=== PATIENT | male | born 1935 | race Caucasian/White ===

== ENCOUNTER 2019-05-29 20:04 | Inpatient (IN) ==
[2019-05-29] MEDS ORDERED: IOPAMIDOL 100 ML BOTTLE IV ONE (20:05)
[2019-05-29] MEDS ORDERED: cefTRIAXone 1 GM in DEXTROSE 5% IN WATER 50 ML IV SCH (20:30)
[2019-05-29] MEDS ORDERED: MAGNESIUM SULFATE 2 GM/50 ML BAG IV ONE (20:30)
[2019-05-29] MEDS ORDERED: 0.9 % SODIUM CHLORIDE 500 ML IV ONE (20:30)
[2019-05-29] MEDS ORDERED: DEXAMETHASONE 10 MG/ML VIAL IV ONE (20:34)
[2019-05-29 21:07] LABS: Basophils # (Auto) 0.06 K/mcL (0.00-0.30); Basophils % (Auto) 0.4 % (0.0-2.0); Eosinophils # (Auto) 0.23 K/mcL (0.00-0.70); Eosinophils % (Auto) 1.4 % (0.0-7.0); Granulocytes % (Auto) 74.4 % (38.0-78.0); Hematocrit 44.2 % (40.1-51.0); Hemoglobin 14.6 g/dL (13.7-17.5); Lymphocytes # (Auto) 2.95 K/mcL (1.50-4.80); Lymphocytes % (Auto) 18.3 % (15.5-49.0); Mean Cell Volume 89.7 fL (80.0-100.0); Mean Platelet Volume 10.6 fL (7.4-10.4); Monocytes # (Auto) 0.88 K/mcL (0.10-0.90); Monocytes % (Auto) 5.5 % (1.0-12.0); Platelet Count 253 K/mcL (140-440); RBC 4.93 M/mcL (4.63-6.08); WBC 16.1 K/mcL (4.50-11.00)
[2019-05-29 21:16] LABS: POC Blood Urea Nitrogen 10 mg/dl (8-23); POC CO2 25 mmol/L (22-30); POC Calcium, Ionized 1.07 mmol/L (1.16-1.32); POC Chloride 101 mmol/L (96-108); POC Creatinine 0.8 mg/dl (0.7-1.2); POC Glucose, Random 176 mg/dL (70-105); POC Potassium 3.8 mmol/L (3.3-5.1); POC Sodium 137 mmol/L (133-145)
[2019-05-29 21:37] LABS: ALT/SGPT 12 U/l (0-40); AST/SGOT 22 U/l (0-37); Albumin 3.9 gm/dL (3.2-5.2); Albumin/Globulin Ratio 1.5 (1.0-2.3); Alkaline Phosphatase 143 U/L (39-117); Bilirubin,Total 0.3 mg/dL (0.0-1.0); Blood Urea Nitrogen 10 mg/dl (8-23); Calcium 8.6 mg/dl (8.6-10.4); Carbon Dioxide 24 mmol/L (22-30); Chloride 99 mmol/L (96-108); Globulin 2.6 gm/dL (2.2-3.7); Glomerular Filtration Rate 83; Glucose 178 mg/dL (70-105)
--- NOTE | 2019-05-29 21:52 | Emergency Department Note ---
SOB HPI - General Chief Complaint: Shortness of Breath/Dyspnea Stated Complaint: shortness of breath Time Seen by Provider: 05/29/19 20:30 Source: patient, family, EMS Mode of arrival: wheelchair Limitations: no limitations - History of Present Illness 83-year-old male with known COPD, was also on CPAP at night comes in via EMS for shortness of breath. Apparently the last 2 nights he has not been able to sleep lying down and has not been moving air well. EMS came out to his house and he was not able to breathe so he got to doses of breathing treatment before coming in. This did not alleviate his dyspnea so he was placed on a CPAP machine-this greatly helped. He has had a fever as well I was only able to get him to answer a few questions as he was on BiPAP here in the ER-he was struggling to breathe and required it. History is per his daughter, who lives across the street from him, and EMS - Related Data Home Medications Medication Instructions Recorded Confirmed acetaminophen 325 mg tablet 1,500 mg PO ONCE tab 10/31/15 02/01/18 carboxymethylcellulose sodium 1 % 1 drp OPHTHALMIC TID PRN ml 02/01/18 02/01/18 eye liquid gel drops Aspirin [[facility] Aspirin EC] 81 mg PO DAILY 05/29/19 05/29/19 Cod Liver Oil 1 each PO QAM 05/29/19 05/29/19 Naproxen (Pp) [Aleve 220Mg (Pp)] 220 mg PO PRN PRN 05/29/19 05/29/19 Previous Rx's Medication Instructions Recorded Self Titration CPAP machine #1 ea 01/26/17 blood sugar diagnostic, drum See Dose Instructions .ROUTE 09/23/17 .MEDSUPPLY #102 each 4 wheel walker #1 each 02/02/18 Wide shower Bench #1 ea 02/02/18 losartan 50 mg tablet 50 mg PO QDAY #30 tab 03/07/18 Allergies Allergy/AdvReac Type Severity Reaction Status Date / Time Amoxicillin [AMOXICILLIN] Allergy Unknown FACE AND Verified 02/01/18 17:46 THROAT SWELLING metoprolol [METOPROLOL] Allergy Unknown Dizziness Verified 02/01/18 17:46 morphine [MORPHINE] Allergy Unknown HALLUCINATI Verified 02/01/18 17:46 ONS oxybutynin Allergy Unknown Difficulty Verified 02/01/18 17:46 Swallowing silodosin [From Rapaflo] Allergy Unknown Headache Verified 02/01/18 17:46 tamsulosin Allergy Unknown Hives Verified 02/01/18 17:46 methylprednisolone AdvReac Unknown Agitation Verified 02/01/18 17:46 [METHYLPREDNISOLONE] Review of Systems Limitations: ROS unobtainable due to patients medical condition Past Medical History - Past Medical History Attestation: Yes: The following information was validated with the patient. [facility] Narrative: Family History (Last Reviewed 02/01/18 @ 17:46 by Alexandria Oliver, SARAH, CALLIE) Brother Malignant neoplasm of brain Cerebrovascular accident Sister Malignant neoplasm of breast Leukemia Medical History (Last Reviewed 02/01/18 @ 17:46 by Alexandria Oliver, SARAH, CALLIE) Meningioma (Chronic ~08/2017) Hydrocele (Chronic) Groin pain (Chronic) Swelling of scrotum (Chronic) Chronic back pain (Chronic) Vitreous degeneration (Chronic) Sleep apnea (Chronic) Pulmonary embolism (Chronic) Visual disturbance (Chronic) TATIANA (obstructive sleep apnea) (Chronic) Obesity (Chronic) Melanoma of skin (Resolved) Hypertension, essential (Chronic) Hyperlipidemia (Chronic) Fatigue (Chronic) HTN, white coat (Chronic) DMII (diabetes mellitus, type 2) (Chronic) Dermatochalasis (Chronic) DVT (deep venous thrombosis) (Resolved) Coronary atherosclerosis (Chronic) Conjunctivitis, allergic, chronic (Chronic) Chronic sinusitis (Chronic) COPD (chronic obstructive pulmonary disease) (Chronic) 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) BPH without obstruction/lower urinary tract symptoms (Resolved) Bronchitis, chronic (Resolved) Metabolic disorder (Resolved) Overactive bladder (Resolved) Prostate disorder (Resolved) Snoring (Resolved) CAD (coronary artery disease) (Inactive) Past Surgical History (Last Reviewed 02/01/18 @ 17:46 by Alexandria Oliver, SARAH, CALLIE) H/O arthroscopic knee surgery (Resolved) H/O colonoscopy (Resolved 09/27/07) H/O removal of cyst (Resolved) History of carpal tunnel release (Resolved) History of hip surgery (Resolved) S/P lumbar spinal fusion (Resolved) S/P tonsillectomy (Resolved) - Social History smoking status: Former smoker Physical Exam Obese male in some respiratory distress relieved on BiPAP. Now comfortable on BiPAP. He is able answer some questions but is difficult to hear over the noise of the machine. Normocephalic atraumatic. Conjunctive are clear sclerae white nonicteric. Heart is tachycardic. I am not able to hear a murmur. Lungs are clear to auscultation but I do hear some upper airway wheezing and rhonchi. Abdomen is soft nontender nondistended. He is got +1 pedal edema bilaterally to the knees. He is closing his eyes but he is easily arousable Limitations: no limitations Course Vital Signs Pulse Rate 123 H 05/29/19 20:05 Blood Pressure 204/112 05/29/19 20:05 Pulse Oximetry (%) 100 05/29/19 20:05 Pulse Rate 101 H 05/29/19 22:10 Respiratory Rate 22 05/29/19 22:10 Blood Pressure 174/83 05/29/19 22:10 Pulse Oximetry (%) 100 05/29/19 22:10 Shortness of Breath/Dyspnea - Lab Data Lab results reviewed: Yes I reviewed the patient's lab results. Result diagrams: 05/29/19 20:27 05/29/19 20:27 Lab Results 05/29/19 05/29/19 05/29/19 Range/Units 20:27 20:27 20:27 WBC 16.1 H (4.50-11.00) K/mcL RBC 4.93 (4.63-6.08) M/mcL Hgb 14.6 (13.7-17.5) g/dL Hct 44.2 (40.1-51.0) % POC Hct (41.0-55.0) % MCV 89.7 (80.0-100.0) fL MCH 29.6 (26.0-34.0) pg MCHC 33.0 (31.0-36.0) g/dL RDW 13.0 (11.5-14.5) % Plt Count 253 (140-440) K/mcL MPV 10.6 H (7.4-10.4) fL Gran % 74.4 (38.0-78.0) % Lymph % (Auto) 18.3 (15.5-49.0) % [place] % (Auto) 5.5 (1.0-12.0) % Eos % (Auto) 1.4 (0.0-7.0) % Baso % (Auto) 0.4 (0.0-2.0) % Gran # 11.96 H (1.80-8.00) K/mcL Lymph # (Auto) 2.95 (1.50-4.80) K/mcL [place] # (Auto) 0.88 (0.10-0.90) K/mcL Eos # (Auto) 0.23 (0.00-0.70) K/mcL Baso # (Auto) 0.06 (0.00-0.30) K/mcL VBG Lactic Acid (0.5-2.0) mmol/L POC Sodium (133-145) mmol/L Sodium 138 (133-145) mmol/L POC Potassium (3.3-5.1) mmol/L Potassium 4.4 (3.3-5.1) mmol/L POC Chloride (96-108) mmol/L Chloride 99 (96-108) mmol/L Carbon Dioxide 24 (22-30) mmol/L POC Total CO2 (22-30) mmol/L Anion Gap 15.0 (8-16) POC BUN (8-23) mg/dl BUN 10 (8-23) mg/dl Creatinine 0.8 (0.7-1.2) mg/dl POC Creatinine (0.7-1.2) mg/dl GFR Calculation 83 Glucose 178 H (70-105) mg/dL POC Glucose (70-105) mg/dL Calcium 8.6 (8.6-10.4) mg/dl POC WB Ioniz Calcium (1.16-1.32) mmol/L Magnesium (1.6-2.5) mg/dL Total Bilirubin 0.3 (0.0-1.0) mg/dL AST 22 (0-37) U/l ALT 12 (0-40) U/l Alkaline Phosphatase 143 H (39-117) U/L Troponin T (0-0.03) ng/ml NT-Pro-B Natriuret Pep (0-450) pg/ml Total Protein 6.5 (5.9-8.4) gm/dL Albumin 3.9 (3.2-5.2) gm/dL Globulin 2.6 (2.2-3.7) gm/dL Albumin/Globulin Ratio 1.5 (1.0-2.3) Lipase (7-60) U/L Procalcitonin 0.10 (<0.10) ng/mL 05/29/19 05/29/19 05/29/19 Range/Units 20:27 20:27 20:27 WBC (4.50-11.00) K/mcL RBC (4.63-6.08) M/mcL Hgb (13.7-17.5) g/dL Hct (40.1-51.0) % POC Hct 44.0 (41.0-55.0) % MCV (80.0-100.0) fL MCH (26.0-34.0) pg MCHC (31.0-36.0) g/dL RDW (11.5-14.5) % Plt Count (140-440) K/mcL MPV (7.4-10.4) fL Gran % (38.0-78.0) % Lymph % (Auto) (15.5-49.0) % [place] % (Auto) (1.0-12.0) % Eos % (Auto) (0.0-7.0) % Baso % (Auto) (0.0-2.0) % Gran # (1.80-8.00) K/mcL Lymph # (Auto) (1.50-4.80) K/mcL [place] # (Auto) (0.10-0.90) K/mcL Eos # (Auto) (0.00-0.70) K/mcL Baso # (Auto) (0.00-0.30) K/mcL VBG Lactic Acid 1.5 (0.5-2.0) mmol/L POC Sodium 137 (133-145) mmol/L Sodium (133-145) mmol/L POC Potassium 3.8 (3.3-5.1) mmol/L Potassium (3.3-5.1) mmol/L POC Chloride 101 (96-108) mmol/L Chloride (96-108) mmol/L Carbon Dioxide (22-30) mmol/L POC Total CO2 25 (22-30) mmol/L Anion Gap (8-16) POC BUN 10 (8-23) mg/dl BUN (8-23) mg/dl Creatinine (0.7-1.2) mg/dl POC Creatinine 0.8 (0.7-1.2) mg/dl GFR Calculation Glucose (70-105) mg/dL POC Glucose 176 H (70-105) mg/dL Calcium (8.6-10.4) mg/dl POC WB Ioniz Calcium 1.07 L (1.16-1.32) mmol/L Magnesium 1.9 (1.6-2.5) mg/dL Total Bilirubin (0.0-1.0) mg/dL AST (0-37) U/l ALT (0-40) U/l Alkaline Phosphatase (39-117) U/L Troponin T < 0.01 (0-0.03) ng/ml NT-Pro-B Natriuret Pep 1561.0 H (0-450) pg/ml Total Protein (5.9-8.4) gm/dL Albumin (3.2-5.2) gm/dL Globulin (2.2-3.7) gm/dL Albumin/Globulin Ratio (1.0-2.3) Lipase 10 (7-60) U/L Procalcitonin (<0.10) ng/mL Arterial blood gas shows pH of 7.40 PCO2 42 PO2 of 60 on 25% FiO2 with a 12/5 BiPAP Urinalysis [id number] dipstick is normal - Radiology Data Radiology results reviewed: Yes I reviewed the patient's radiology results. CT scan of the chest shows bilateral lower lobe bronchitis. There is an 8 mm right upper pulmonary nodule which may require follow-up - EKG Data EKG attestation: Yes I reviewed and interpreted this EKG. EKG results narrative: EKG was not able to be interpreted because of significant artifact from movement-he is working too hard to breathe. We can try again once he calms down Disposition Pt seen by WORK MEASUREMENT ENGINEER/PA only: No Clinical Impression: Acute exacerbation of chronic obstructive airways disease Summary: Patient was brought in by CPAP and transitioned to BiPAP. Blood gas shows that he is doing well on that BiPAP except for needing to turn up the oxygen a little bit. Patient will need to go the ICU for BiPAP or be transferred. Ordered laboratory blood cultures and CT scan of the chest. Start IV fluids Rocephin Decadron magnesium and lorazepam if needed for anxiety Laboratory points to COPD as a cause for his dyspnea. I discussed the findings with the patient as well as with hospitalist Dr. Hdz. Dr. Hdz agreed to accept the patient for further care and evaluation in the hospital; he will go to the PCU Disposition: [facility] Condition: Critical Referrals: Alexandria Oliver, SARAH, SEARCH ADVERTISING STRATEGIST [Primary Care Provider] -
[2019-05-29] MEDS ORDERED: LORazepam 2 MG/ML VIAL IV ONE (21:57)
--- NOTE | 2019-05-30 | Internal Med History&Physical ---
Medical - H&P: [facility] Patient information: Note initiated : 05/30/19 at 12:00 am Service Date, if different from initiated Date: [] Patient: Richi Aguila a 83 y/o M admitted on for shortness of breath. Chief Complaint: [Shortness of breath for 2 days] History of present illness: Mr. Aguila is a 83 year old M with a history of COPD and a high blood pressure who was brought to the ER due to worsening shortness of breath for 2 days. As per patient and the family, she started to have trouble breathing associated with fever, chills and dry FEELS MUCH For 2 days. He was brought to the ER by EMS. On the way to the ER, he was put on CPAP. In the ER, he was put on BiPAP which helps him a lot. When I saw this patient in the ER, other than symptoms mentioned above, he denied headache, dizziness, chest pain, abdominal pain, nausea, vomiting, or dysuria. Denied recent travel or sick contact. All systems: reviewed and no additional remarkable complaints except as stated (Worsening shortness of breath, cough, fever and chills.) Medical - H&P: H Medical history: COPD and a high blood pressure Family history: reviewed and not pertinent (Both parents were healthy) Smoking status: Never smoker Drug use: none Alcohol use: none Medical - H&P: Meds Home Medications Medication Instructions Recorded Confirmed Type acetaminophen 325 mg tablet 1,500 mg PO ONCE tab 10/31/15 05/29/19 History Self Titration CPAP machine #1 ea 01/26/17 02/01/18 Rx blood sugar diagnostic, drum See Dose Instructions .ROUTE 09/23/17 02/01/18 Rx .MEDSUPPLY #102 each carboxymethylcellulose sodium 1 % 1 drp OPHTHALMIC TID PRN ml 02/01/18 05/29/19 History eye liquid gel drops 4 wheel walker #1 each 02/02/18 02/02/18 Rx Wide shower Bench #1 ea 02/02/18 02/02/18 Rx losartan 50 mg tablet 50 mg PO QDAY #30 tab 03/07/18 05/29/19 Rx Aspirin [[place] Aspirin EC] 81 mg PO DAILY 05/29/19 05/29/19 History Cod Liver Oil 1 each PO QAM 05/29/19 05/29/19 History Naproxen (Pp) [Aleve 220Mg (Pp)] 220 mg PO PRN PRN 05/29/19 05/29/19 History Allergies Allergy/AdvReac Type Severity Reaction Status Date / Time Amoxicillin [AMOXICILLIN] Allergy Unknown FACE AND Verified 02/01/18 17:46 THROAT SWELLING metoprolol [METOPROLOL] Allergy Unknown Dizziness Verified 02/01/18 17:46 morphine [MORPHINE] Allergy Unknown HALLUCINATI Verified 02/01/18 17:46 ONS oxybutynin Allergy Unknown Difficulty Verified 02/01/18 17:46 Swallowing silodosin [From Rapaflo] Allergy Unknown Headache Verified 02/01/18 17:46 tamsulosin Allergy Unknown Hives Verified 02/01/18 17:46 methylprednisolone AdvReac Unknown Agitation Verified 02/01/18 17:46 [METHYLPREDNISOLONE] Medical - H&P: Exam - Constitutional Vitals: Pulse Resp BP Pulse Ox 92 H 17 155/99 94 05/29/19 23:39 05/29/19 23:42 05/29/19 23:42 05/29/19 23:39 - Other Additional findings: General: mild acute distress due to sob. on BIPAP Head: Atraumatic, normocephalic Eyes/N/T: PERRL, EOMI Neck: neck supple, no thyroid megaly CV: RRR, No murmurs, Pulm: silent lungs. Abd: soft, nontender, +BS x4 Ext: No edema, cyanosis or tenderness. Neuro: A+OX3, grossly no focal neurological deficits Skin: warm/dry Psych: normal mood Medical - H&P: Reslt - Labs CBC & Chem 7: 05/29/19 20:27 05/29/19 20:27 Labs: Short CBC 05/29/19 Range/Units 20:27 WBC 16.1 H (4.50-11.00) K/mcL Hgb 14.6 (13.7-17.5) g/dL Hct 44.2 (40.1-51.0) % Plt Count 253 (140-440) K/mcL BMP 05/29/19 20:27 Sodium 138 Potassium 4.4 Chloride 99 Carbon Dioxide 24 BUN 10 Creatinine 0.8 Glucose 178 H Calcium 8.6 Cardiac Enzymes 05/29/19 Range/Units 20:27 Troponin T < 0.01 (0-0.03) ng/ml Liver Function 05/29/19 Range/Units 20:27 Total Bilirubin 0.3 (0.0-1.0) mg/dL AST 22 (0-37) U/l ALT 12 (0-40) U/l Alkaline Phosphatase 143 H (39-117) U/L Albumin 3.9 (3.2-5.2) gm/dL Medical - H&P: A/P - Narrative A/P Narrative: Assessment: 1. Acute hypoxic respiratory failure 2. COPD exacerbation 3. Acute bronchitis 4. Hypertensive urgency 5. Elevation of BNP Plan: 1. Patient will be admitted to PCU inpatient because I feel patient should stay in the hospital more than 2 midnights 2. Cardia monitor and pulse ox Oxygen therapy via nasal cannula, BiPAP PRN Prednisone 30 mg daily Azithromycin 250 mg daily Inhalers 2. continue losartan 50 mg daily, added amlodipine 5 mg daily and low dose metoprolol 12.5 mg twice daily Hydralazine as needed 3. Mild elevation of BNP Troponin negative Denies history of CHF Echocardiogram 4. PT OT 5. DVT prophylaxis: Lovenox 6. CODE STATUS: DNI Discussed with the patient and the family who agreed with the PCR declined intubation.
[2019-05-30] MEDS ORDERED: ONDANSETRON 4 MG/2 ML VIAL IV PRN ×2 (00:01→01:54)
[2019-05-30] MEDS ORDERED: ACETAMINOPHEN 325 MG TABLET PO PRN ×2 (00:01→01:54)
[2019-05-30] MEDS ORDERED: AZITHROMYCIN 250 MG in DEXTROSE 5% IN WATER 250 ML IV SCH (00:15)
[2019-05-30] MEDS ORDERED: predniSONE 10 MG TABLET PO SCH (00:34)
[2019-05-30] MEDS ORDERED: CARBOXYMETHYLCELLULOSE SODIUM 1 EACH DROPER.GEL OU PRN (01:54)
[2019-05-30] MEDS: METOPROLOL TARTRATE 25 MG TABLET PO SCH ×3 (02:13→20:07)
[2019-05-30] MEDS: amLODIPine 5 MG TABLET PO SCH ×2 (02:14→20:07)
[2019-05-30] MEDS ORDERED: IPRATROPIUM/ALBUTEROL 3 ML AMPUL.NEB NEB SCH (03:00)
[2019-05-30] MEDS: IPRATROPIUM/ALBUTEROL 3 ML AMPUL.NEB NEB SCH ×6 (03:06→23:59)
[2019-05-30 03:31] LABS: ALT/SGPT 12 U/l (0-40); AST/SGOT 21 U/l (0-37); Albumin 3.9 gm/dL (3.2-5.2); Albumin/Globulin Ratio 1.3 (1.0-2.3); Alkaline Phosphatase 134 U/L (39-117); Bilirubin,Total 0.3 mg/dL (0.0-1.0); Blood Urea Nitrogen 9 mg/dl (8-23); Calcium 8.7 mg/dl (8.6-10.4); Carbon Dioxide 23 mmol/L (22-30); Chloride 98 mmol/L (96-108); Globulin 3.1 gm/dL (2.2-3.7); Glomerular Filtration Rate 83; Glucose 184 mg/dL (70-105)
--- NOTE | 2019-05-30 04:11 | Cat Scan Report ---
CLINICAL INFORMATION: Dyspnea COMPARISON: None. TECHNIQUE: 80 cc of Isovue-370 were injected intravenously, and 25 seconds later, 0.625 mm helical slices were obtained from the lung apices through the bases. Following reconstruction, 2.5 mm sagittal, coronal and axial reformations were processed and reviewed at lung, mediastinal and bone windows. 7 mm axial MIPS were also obtained to optimize pulmonary nodule detection. The exam was performed using radiation dose optimization techniques including, but not limited to, automated exposure control, adjustment of the mA and/or kV according to patient size and use of iterative reconstruction technique. FINDINGS: Motion artifact mildly compromises the quality of the study. Pulmonary parenchymal windows shows bronchitis featuring elevated lung volumes and wall thickening of the bronchi. Specifically, there is moderate narrowing of both the right and left mainstem bronchi which is a new finding. There is also mild bronchiectasis in the segmental and subsegmental bronchi in the posterior medial lower lobes. There is a mild peribronchovascular infiltrate in the right upper lobe that new from the previous exam. An new well-circumscribed 8 mm nodule has developed in the right upper lobe on image 26. No other nodules. Pleural spaces are normal. Mediastinal windows show the heart is normal in size with extraordinarily heavy ossific atherosclerotic plaque in the left main and proximal LAD coronary arteries. The thoracic aorta is normal in diameter with moderate diffuse fibrofatty and calcific plaque. The pulmonary arteries are suboptimally opacified with no evidence of recurrent embolus however. There is no adenopathy within the mediastinal, hilar or axillary regions. The esophagus is grossly normal. Thyroid is unremarkable. Bones and soft tissues of the chest wall are within normal limits for age. Images of the superior abdomen show moderate pancreatic atrophy which has progressed since 2009 IMPRESSION: 1. Moderate bronchitis 2. Vague peribronchovascular infiltrate - right upper lobe. 3. New 8 mm well-circumscribed nodule in the posterior right upper lobe. Consider: follow-up chest CT in six months. This is more likely inflammatory than malignant. 4. Extremely heavy calcification fibrofatty plaque in the left main and LAD coronary arteries. Occlusive or subocclusive stenosis is suspected. Consider cardiology referral for stress testing. 5. 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
[2019-05-30] MEDS: 0.9 % SODIUM CHLORIDE 10 ML SYRINGE IV SCH ×3 (05:22→23:06)
[2019-05-30] MEDS ORDERED: 0.9 % SODIUM CHLORIDE 10 ML SYRINGE IV SCH (06:00)
[2019-05-30] MEDS: PANTOPRAZOLE 40 MG TABLET PO SCH (07:17)
[2019-05-30] MEDS ORDERED: PANTOPRAZOLE 40 MG TABLET PO SCH (07:30)
[2019-05-30] MEDS: BUDESONIDE 0.5 MG/2 ML AMPUL.NEB NEB SCH ×2 (07:45→19:05)
[2019-05-30] MEDS ORDERED: DOCUSATE SODIUM 100 MG CAPSULE PO SCH (09:00)
[2019-05-30] MEDS ORDERED: ENOXAPARIN 40 MG/0.4 ML SYRINGE SQ SCH (09:00)
[2019-05-30] MEDS ORDERED: LOSARTAN 50 MG TABLET PO SCH (09:00)
[2019-05-30] MEDS ORDERED: NON FORMULARY MEDICATION 1 DOSE MISCELL (Aspirin [St. Joseph Aspirin Ec] 81 MG) PO SCH (09:00)
[2019-05-30] MEDS ORDERED: BUDESONIDE 0.5 MG/2 ML AMPUL.NEB NEB SCH (09:00)
[2019-05-30] MEDS: ENOXAPARIN 40 MG/0.4 ML SYRINGE SQ SCH (10:12)
[2019-05-30] MEDS: predniSONE 10 MG TABLET PO SCH (10:13)
[2019-05-30] MEDS: ASPIRIN 81 MG TAB.CHEW PO SCH (10:13)
[2019-05-30] MEDS: DOCUSATE SODIUM 100 MG CAPSULE PO SCH ×2 (10:13→20:07)
[2019-05-30] MEDS: LOSARTAN 50 MG TABLET PO SCH (10:13)
--- NOTE | 2019-05-30 13:07 | Internal Med Progress Note ---
Medical - PN: Subj Patient information: Note initiated : 05/30/19 at 1:05 pm Service Date, if different from initiated Date: [] Patient: Richi Aguila 83 y/o M admitted on 05/30/19 for shortness of breath. Chief Complaint: [] Interval history: Mr. Aguila is a 83 year old M with a history of COPD and a high blood pressure who was brought to the ER due to worsening shortness of breath for 2 days. As per patient and the family, she started to have trouble breathing associated with fever, chills and dry FEELS MUCH For 2 days. He was brought to the ER by EMS. On the way to the ER, he was put on CPAP. In the ER, he was put on BiPAP which helps him a lot. When I saw this patient in the ER, other than symptoms mentioned above, he denied headache, dizziness, chest pain, abdominal pain, nausea, vomiting, or dysuria. Denied recent travel or sick contact. 05/30 - Constitutional Vitals: Vital Signs Temp Pulse Resp BP Pulse Ox 98.8 F 72 16 150/66 92 05/30/19 12:04 05/30/19 12:04 05/30/19 12:04 05/30/19 12:04 05/30/19 12:04 Period Temp Pulse Resp BP Sys/Metcalf Pulse Ox Last 24 Hr 97.3 F-98.8 F 60-123 16-32 118-204/66-114 92-100 Intake and Output 05/29/19 05/30/19 05/30/19 21:59 05:59 13:59 Intake Total 850 240 Output Total 600 300 Balance 250 -60 Weight 127.459 kg 130.09 kg Intake & Output: Intake & Output 05/29/19 05/30/19 05/30/19 21:59 05:59 13:59 Intake Total 850 240 Output Total 600 300 Balance 250 -60 Weight 127.459 kg 130.09 kg Intake: IV 850 Sodium Chloride 0.9% 500 ml @ 500 Wide Open IV .Q0M ONE Rx#: [id number] Zithromax 250 mg In Dextrose 5% 250 in Water 250 ml @ 250 mls/hr IV Q24H [facility] Rx#:[id number] Rocephin 1 gm In Dextrose 5% in 50 Water 50 ml @ 100 mls/hr IV ONCE [facility] Rx#:[id number] Oral 240 Output: Void Amount 600 300 Other: Meal Breakfast Percent of Meal Consumed 100% Feeding Ability Independent Urine Appearance Clear Clear Urine Color Pale Bright Yellow Straw Urine Odor Normal Exam: General: Alert, Awake, No acute Distress Eyes/N/T: EOMI, Head/Neck: neck supple, CV: RRR, No murmurs, Pulm: Abd: soft, nontender, +BS x4 Ext: no clubbing/cyanosis/edema Neuro: Alert, no focal deficits, moves all extremities, Skin: warm/dry Medical - PN: Obj Da - Labs CBC & Chem 7: 05/29/19 20:27 05/30/19 01:56 Labs: Abnormal Lab Results 05/30/19 05/29/19 05/29/19 01:56 20:27 20:27 WBC MPV Gran # Glucose 184 H 178 H POC Glucose 176 H POC WB Ioniz Calcium 1.07 L Alkaline Phosphatase 134 H 143 H NT-Pro-B Natriuret Pep 1561.0 H 05/29/19 20:27 WBC 16.1 H MPV 10.6 H Gran # 11.96 H Glucose POC Glucose POC WB Ioniz Calcium Alkaline Phosphatase NT-Pro-B Natriuret Pep Meds: Medications Acetaminophen (Tylenol) 650 mg PO Q6HP PRN; Protocol PRN Reason: Per Pain Protocol/Fever > 101 Albuterol/Ipratropium (Duoneb) 3 ml NEB Q4HRT [facility] Last Admin: 05/30/19 10:56 Dose: 3 ml Documented by: Amlodipine Besylate (Norvasc) 5 mg PO HS [facility] Last Admin: 05/30/19 02:14 Dose: Not Given Documented by: Artificial Tears (Refresh Celluvisc) 1 each OU TIDP PRN PRN Reason: DRY EYES Aspirin (Aspirin) 81 mg PO DAILY [facility] Last Admin: 05/30/19 10:13 Dose: 81 mg Documented by: Budesonide (Pulmicort) 0.5 mg NEB Q12 [facility] Last Admin: 05/30/19 07:45 Dose: 0.5 mg Documented by: Docusate Sodium (Colace) 100 mg PO BID [facility] Last Admin: 05/30/19 10:13 Dose: 100 mg Documented by: Enoxaparin Sodium (Lovenox) 40 mg SQ DAILY [facility] Last Admin: 05/30/19 10:12 Dose: 40 mg Documented by: Azithromycin 250 mg/ Dextrose 250 mls @ 250 mls/hr IV Q24H [facility]; Protocol Stop: 06/01/19 15:59 Losartan Potassium (Cozaar) 50 mg PO QDAY [facility] Last Admin: 05/30/19 10:13 Dose: 50 mg Documented by: Metoprolol Tartrate (Lopressor) 12.5 mg PO BID [facility] Last Admin: 05/30/19 10:13 Dose: 12.5 mg Documented by: Ondansetron HCl (Zofran) 4 mg IV Q4HP PRN; Protocol PRN Reason: Nausea And Vomiting [facility]opraz[facility]ix) [facility] Last Admin: 05/30/19 07:17 Dose: 40 mg Documented by: Prednisone (Prednisone) [address] [facility] Last Admin: 05/30/19 10:13 Dose: 30 mg Documented by: Sodium Chloride (Saline Flush) 10 ml IV Q8 [facility] Last Admin: 05/30/19 12:56 Dose: 10 ml Documented by: Medical - PN: A/P - Time Spent With Patient Total time spent is greater than 50% in coordination of care (as documented) at patient's floor/unit and/or counseling patient: - Narrative A/P Narrative: Assessment: * Acute hypoxic respiratory failure -bipap initially * COPD exacerbation * Hypertensive urgency: improved * Elevation of BNP Plan: -wean Oxygen as able, BiPAP PRN -Prednisone (wean), IS/Acapella, Negs -Azithromycin 250 mg daily - continue losartan 50 mg daily, added amlodipine 5 mg daily and low dose metoprolol 12.5 mg twice daily, prn Hydralazine - PT OT -f/u CT chest in 6 months evaluate incidental nodule RUL (felt to be inflammatory but r/o CA) - DVT prophylaxis: Lovenox CODE STATUS: DNI Medical - PN: Qual - VTE Deep Vein Thrombosis/Pulmonary Embolism Present on Admission: No
[2019-05-30] MEDS: AZITHROMYCIN 250 MG in DEXTROSE 5% IN WATER 250 ML IV SCH (15:00)
[2019-05-30] MEDS: cefTRIAXone 2 GM in DEXTROSE 5% IN WATER 50 ML IV SCH (15:00)
[2019-05-30] MEDS ORDERED: HALOPERIDOL LACTATE 5 MG/ML VIAL ONE ×2 (18:41→19:03)
[2019-05-30] MEDS: HALOPERIDOL LACTATE 5 MG/ML VIAL IV SCH (19:21)
[2019-05-31] MEDS: 0.9 % SODIUM CHLORIDE 10 ML SYRINGE IV SCH ×4 (04:20→20:55)
[2019-05-31] MEDS: IPRATROPIUM/ALBUTEROL 3 ML AMPUL.NEB NEB SCH ×2 (04:20→07:35)
[2019-05-31 07:04] LABS: Basophils # (Auto) 0.02 K/mcL (0.00-0.30); Basophils % (Auto) 0.1 % (0.0-2.0); Eosinophils # (Auto) 0 K/mcL (0.00-0.70); Eosinophils % (Auto) 0 % (0.0-7.0); Granulocytes % (Auto) 78.6 % (38.0-78.0); Hematocrit 39.4 % (40.1-51.0); Hemoglobin 12.9 g/dL (13.7-17.5); Lymphocytes # (Auto) 2.17 K/mcL (1.50-4.80); Lymphocytes % (Auto) 14.1 % (15.5-49.0); Mean Corpuscular HGB Conc 32.7 g/dL (31.0-36.0); Mean Platelet Volume 10.6 fL (7.4-10.4); Monocytes # (Auto) 1.11 K/mcL (0.10-0.90); Monocytes % (Auto) 7.2 % (1.0-12.0); Platelet Count 243 K/mcL (140-440); RBC 4.33 M/mcL (4.63-6.08); Red Cell Distribution Width 13.1 % (11.5-14.5); WBC 15.4 K/mcL (4.50-11.00)
--- NOTE | 2019-05-31 07:06 | Internal Med Progress Note ---
Medical - PN: Subj Patient information: Note initiated : 05/31/19 at 7:03 am Service Date, if different from initiated Date: [] Patient: Richi Aguila 83 y/o M admitted on 05/30/19 for shortness of breath. Chief Complaint: [] Interval history: Mr. Aguila is a 83 year old M with a history of COPD and a high blood pressure who was brought to the ER due to worsening shortness of breath for 2 days. As per patient and the family, she started to have trouble breathing associated with fever, chills and dry FEELS MUCH For 2 days. He was brought to the ER by EMS. On the way to the ER, he was put on CPAP. In the ER, he was put on BiPAP which helps him a lot. When I saw this patient in the ER, other than symptoms mentioned above, he denied headache, dizziness, chest pain, abdominal pain, nausea, vomiting, or dysuria. Denied recent travel or sick contact. 05/30 Patient with cough. States some shortness of breath better than yesterday. Other complaints. Review of Systems: denies headache/fever/chills/nausea/vomiting/chest or abdominal pain/cough/dyspnea/diarrhea. Otherwise see above. - Constitutional Vitals: Vital Signs Temp Pulse Resp BP Pulse Ox 97.8 F 76 20 158/75 97 05/31/19 04:00 05/31/19 04:00 05/31/19 04:00 05/31/19 04:00 05/31/19 04:00 Period Temp Pulse Resp BP Sys/Metcalf Pulse Ox Last 24 Hr 97.3 F-99.2 F 61-99 13-24 109-160/57-94 91-97 Intake and Output 05/30/19 05/31/19 05/31/19 21:59 05:59 13:59 Intake Total 300 400 Output Total 700 500 Balance -400 -100 Weight 121.971 kg Intake & Output: Intake & Output 05/30/19 05/31/19 05/31/19 21:59 05:59 13:59 Intake Total 300 400 Output Total 700 500 Balance -400 -100 Weight 121.971 kg Intake: IV 300 Zithromax 250 mg In Dextrose 5% 250 in Water 250 ml @ 250 mls/hr IV Q24H [facility] Rx#:[id number] Rocephin 2 gm In Dextrose 5% in 50 Water 50 ml @ 100 mls/hr IV Q24H [facility] Rx#:[id number] Oral 400 Output: Void Amount 700 500 Other: Urine Appearance Clear Urine Color Straw Urine Odor Normal # Voids 1 Exam: General: Alert, Awake, No acute Distress Eyes/N/T: EOMI, Head/Neck: neck supple, CV: RRR, No murmurs, Pulm: mild wheeze b/l, some rhonchi Abd: soft, nontender, +BS x4 Ext: no clubbing/cyanosis, 1+ b/l LE edema Neuro: Alert, no focal deficits, moves all extremities, Skin: warm/dry Medical - PN: Obj Da - Labs CBC & Chem 7: 05/31/19 04:40 05/31/19 04:40 Labs: Abnormal Lab Results 05/30/19 05/29/19 05/29/19 01:56 20:27 20:27 WBC MPV Gran # Glucose 184 H 178 H POC Glucose 176 H POC WB Ioniz Calcium 1.07 L Alkaline Phosphatase 134 H 143 H NT-Pro-B Natriuret Pep 1561.0 H 05/29/19 20:27 WBC 16.1 H MPV 10.6 H Gran # 11.96 H Glucose POC Glucose POC WB Ioniz Calcium Alkaline Phosphatase NT-Pro-B Natriuret Pep Meds: Medications Acetaminophen (Tylenol) 650 mg PO Q6HP PRN; Protocol PRN Reason: Per Pain Protocol/Fever > 101 Last Admin: 05/30/19 20:06 Dose: 650 mg Documented by: Albuterol/Ipratropium (Duoneb) 3 ml NEB Q4HRT [facility] Last Admin: 05/31/19 04:20 Dose: 3 ml Documented by: Amlodipine Besylate (Norvasc) 5 mg PO HS [facility] Last Admin: 05/30/19 20:07 Dose: 5 mg Documented by: Artificial Tears (Refresh Celluvisc) 1 each OU TIDP PRN PRN Reason: DRY EYES Aspirin (Aspirin) 81 mg PO DAILY [facility] Last Admin: 05/30/19 10:13 Dose: 81 mg Documented by: Budesonide (Pulmicort) 0.5 mg NEB Q12 [facility] Last Admin: 05/30/19 19:05 Dose: 0.5 mg Documented by: Docusate Sodium (Colace) 100 mg PO BID [facility] Last Admin: 05/30/19 20:07 Dose: 100 mg Documented by: Enoxaparin Sodium (Lovenox) 40 mg SQ DAILY [facility] Last Admin: 05/30/19 10:12 Dose: 40 mg Documented by: Azithromycin 250 mg/ Dextrose 250 mls @ 250 mls/hr IV Q24H [facility]; Protocol Stop: 06/01/19 15:59 Last Infusion: 05/30/19 16:00 Dose: Infused Documented by: Ceftriaxone Sodium 2 gm/ (Dextrose) 50 mls @ 100 mls/hr IV Q24H [facility] Last Infusion: 05/30/19 15:30 Dose: Infused Documented by: Losartan Potassium (Cozaar) 50 mg PO QDAY [facility] Last Admin: 05/30/19 10:13 Dose: 50 mg Documented by: Metoprolol Tartrate (Lopressor) 12.5 mg PO BID [facility] Last Admin: 05/30/19 20:07 Dose: 12.5 mg Documented by: Ondansetron HCl (Zofran) 4 mg IV Q4HP PRN; Protocol PRN Reason: Nausea And Vomiting Pantoprazole Sodium (Protonix) 40 mg PO [facility] Last Admin: 05/30/19 07:17 Dose: 40 mg Documented by: Prednisone (Prednisone) 30 mg PO [facility] Last Admin: 05/30/19 10:13 Dose: 30 mg Documented by: Sodium Chloride (Saline Flush) 10 ml IV Q8 [facility] Last Admin: 05/31/19 04:20 Dose: 10 ml Documented by: Medical - PN: A/P - Time Spent With Patient Total time spent is greater than 50% in coordination of care (as documented) at patient's floor/unit and/or counseling patient: - Narrative A/P Narrative: Assessment: * Acute hypoxic respiratory failure -bipap initially *AECOPD exacerbation *RLL PNA *Hypertensive urgency: improved * Plan: -wean Oxygen as able, BiPAP PRN -Prednisone (wean), IS/Acapella, Negs -Rocephin/Azithromycin -continue losartan 50 mg daily, added amlodipine 5 mg daily and low dose metoprolol 12.5 mg twice daily, prn Hydralazine - PT OT -f/u CT chest in 6 months evaluate incidental nodule RUL (felt to be inflammatory but r/o CA) - DVT prophylaxis: Lovenox CODE STATUS: DNI Medical - PN: Qual - VTE Deep Vein Thrombosis/Pulmonary Embolism Present on Admission: No
[2019-05-31 07:49] LABS: Prothrombin Time 13.7 sec (11.9-14.5)
[2019-05-31 07:57] LABS: ALT/SGPT 11 U/l (0-40); AST/SGOT 22 U/l (0-37); Albumin 3.4 gm/dL (3.2-5.2); Albumin/Globulin Ratio 1.3 (1.0-2.3); Alkaline Phosphatase 97 U/L (39-117); Bilirubin,Direct < 0.2 mg/dL (0.0-0.3); Bilirubin,Total 0.3 mg/dL (0.0-1.0); Blood Urea Nitrogen 18 mg/dl (8-23); Calcium 8.5 mg/dl (8.6-10.4); Carbon Dioxide 25 mmol/L (22-30); Chloride 101 mmol/L (96-108); Globulin 2.7 gm/dL (2.2-3.7); Glomerular Filtration Rate 79; Glucose 119 mg/dL (70-105); Lactate Dehydrogenase 243 U/L (94-250); Phosphorous 2.9 mg/dL (2.7-4.5); Thyroid Stimulating Hormone 1.95 uIU/ml (0.27-5.01); Triglycerides 128 mg/dl (<150); Uric Acid 5.8 mg/dL (2.5-8.0)
[2019-05-31] MEDS: PANTOPRAZOLE 40 MG TABLET PO SCH (08:07)
[2019-05-31] MEDS ORDERED: FUROSEMIDE 20 MG/2 ML VIAL IV ONE (09:08)
[2019-05-31] MEDS: cefTRIAXone 2 GM in DEXTROSE 5% IN WATER 50 ML IV SCH (09:41)
[2019-05-31] MEDS: predniSONE 10 MG TABLET PO SCH (09:59)
[2019-05-31] MEDS: ENOXAPARIN 40 MG/0.4 ML SYRINGE SQ SCH (09:59)
[2019-05-31] MEDS: LOSARTAN 50 MG TABLET PO SCH (10:00)
[2019-05-31] MEDS: METOPROLOL TARTRATE 25 MG TABLET PO SCH ×2 (10:00→20:54)
[2019-05-31] MEDS: DOCUSATE SODIUM 100 MG CAPSULE PO SCH ×2 (10:00→20:55)
[2019-05-31] MEDS: ASPIRIN 81 MG TAB.CHEW PO SCH (10:00)
[2019-05-31] MEDS: AZITHROMYCIN 250 MG in DEXTROSE 5% IN WATER 250 ML IV SCH (10:13)
[2019-05-31] MEDS: BUDESONIDE 0.5 MG/2 ML AMPUL.NEB NEB SCH (12:00)
--- NOTE | 2019-05-31 12:13 | Discharge Summary ---
Medical - DS: Prov Patient information: Note initiated : 05/31/19 at 12:10 pm Service Date, if different from initiated Date: [] Patient: Richi Aguila 83 y/o M admitted on 05/30/19 for shortness of breath. Chief Complaint: [] Date of admission: 05/30/19 01:12 Discharge date: 06/01/19 Primary care physician: Alexandria Oliver Consults: 05/29/19 Consult to Physician [CONS] Stat Comment: Consulting Provider: Isauro Hdz Reason For Exam: Physician to Consult Medical - DS: Meds - Discharge Medications Prescriptions: Losartan [Cozaar] 75 mg PO QDAY #30 tab Hydrochlorothiazide 12.5 mg PO DAILY #30 capsule Levofloxacin [Levaquin] 750 mg PO DAILY #3 tab amLODIPine [Norvasc] 7.5 mg PO DAILY #20 tablet predniSONE [Prednisone] 40 mg PO QAC #1 tab Active and Home Medications: Home Medications acetaminophen 325 mg tablet 1,500 mg PO ONCE tab 10/31/15 [History Confirmed 05/29/19 Last Taken Unknown] carboxymethylcellulose sodium 1 % eye liquid gel drops 1 drp OPHTHALMIC TID PRN ml 02/01/18 [History Confirmed 05/29/19 Last Taken Unknown] losartan 50 mg tablet 50 mg PO QDAY #30 tab 03/07/18 [Rx Confirmed 05/29/19 Last Taken Unknown] Aspirin [[place] Aspirin EC] 81 mg PO DAILY 05/29/19 [History Confirmed 05/29/19 Last Taken Unknown] Cod Liver Oil 1 each PO QAM 05/29/19 [History Confirmed 05/29/19 Last Taken Unknown] Naproxen (Pp) [Aleve 220Mg (Pp)] 220 mg PO PRN PRN 05/29/19 [History Confirmed 05/29/19 Last Taken Unknown] 4 wheel walker 1 each .ROUTE .MEDSUPPLY 05/30/19 [History Confirmed 05/30/19 Last Taken Unknown] Self Titration CPAP machine 1 each AD DAILY 05/30/19 [History Confirmed 05/30/19 Last Taken Unknown] Wide shower Bench 1 each AD .MEDSUPPLY 05/30/19 [History Confirmed 05/30/19 Last Taken Unknown] blood sugar diagnostic, drum-type strips 0 each .ROUTE .MEDSUPPLY 05/30/19 [History Confirmed 05/30/19 Last Taken Unknown] Home Medications acetaminophen 325 mg tablet 1,500 mg PO ONCE tab 10/31/15 [History Confirmed 05/29/19 Last Taken Unknown] carboxymethylcellulose sodium 1 % eye liquid gel drops 1 drp OPHTHALMIC TID PRN ml 02/01/18 [History Confirmed 05/29/19 Last Taken Unknown] Aspirin [[place] Aspirin EC] 81 mg PO DAILY 05/29/19 [History Confirmed 05/29/19 Last Taken Unknown] Cod Liver Oil 1 each PO QAM 05/29/19 [History Confirmed 05/29/19 Last Taken Unknown] Naproxen (Pp) [Aleve 220Mg (Pp)] 220 mg PO PRN PRN 05/29/19 [History Confirmed 05/29/19 Last Taken Unknown] 4 wheel walker 1 each .ROUTE .MEDSUPPLY 05/30/19 [History Confirmed 05/30/19 Last Taken Unknown] Self Titration CPAP machine 1 each AD DAILY 05/30/19 [History Confirmed 05/30/19 Last Taken Unknown] Wide shower Bench 1 each AD .MEDSUPPLY 05/30/19 [History Confirmed 05/30/19 Last Taken Unknown] blood sugar diagnostic, drum-type strips 0 each .ROUTE .MEDSUPPLY 05/30/19 [History Confirmed 05/30/19 Last Taken Unknown] Levofloxacin [Levaquin] 750 mg PO DAILY #3 tab 05/31/19 [Rx Last Taken Unknown] predniSONE [Prednisone] 40 mg PO QAMCC #1 tab 05/31/19 [Rx Last Taken Unknown] Hydrochlorothiazide 12.5 mg PO DAILY #30 capsule 06/01/19 [Rx Last Taken Unknown] Losartan [Cozaar] 75 mg PO QDAY #30 tab 06/01/19 [Rx Last Taken Unknown] amLODIPine [Norvasc] 7.5 mg PO DAILY #20 tablet 06/01/19 [Rx Last Taken Unknown] Medical - DS: Hosp Hospital Course: Mr. Aguila is a 83 year old M with a history of COPD and a high blood pressure who was brought to the ER due to worsening shortness of breath for 2 days. As per patient and the family, she started to have trouble breathing associated with fever, chills and dry FEELS MUCH For 2 days. He was brought to the ER by EMS. On the way to the ER, he was put on CPAP. In the ER, he was put on BiPAP which helps him a lot. When I saw this patient in the ER, other than symptoms mentioned above, he denied headache, dizziness, chest pain, abdominal pain, nausea, vomiting, or dysuria. Denied recent travel or sick contact. 05/30 Patient with cough. States some shortness of breath better than yesterday. Other complaints. 05/31 With occasional cough. States that shortness of breath is essentially at his n ormal level. Patient is threatening to leave AMA. He is on room air at rest. We will walk him and see what his oxygen does. Leukocytosis I suspect is steroid related. He is afebrile and does not appear toxic. Patient ambulated on room air and lowest he got was low 90s. * Acute hypoxic respiratory failure -bipap initially, now on room air *AECOPD exacerbation *RLL PNA/(+)Human Metapneumovirus *Hypertensive urgency: improved *Leukocytosis: increased, suspect steroid effect, afebrile and not toxic appearing, BC neg Discharge diagnosis: Acute hypoxic respiratory failure COPD exacerbation pneumonia hypertensive - Time Spent with Patient Total time spent providing and/or coordinating discharge services: Greater than 30 minutes Medical - DS: Exam - Constitutional Vitals: Vital Signs Temp Pulse Pulse Pulse Pulse Resp BP 05/31/19 10:00 81 24 H 153/72 05/31/19 08:00 98 F 76 16 150/67 05/31/19 07:38 80 20 05/31/19 07:36 80 18 05/31/19 04:00 97.8 F 76 20 158/75 05/31/19 00:00 64 17 05/30/19 23:59 61 15 05/30/19 23:30 97.9 F 67 24 H 126/57 05/30/19 21:44 92 H 13 05/30/19 20:24 99 H 18 05/30/19 19:42 98.9 F 90 20 109/59 05/30/19 19:05 98 H 22 05/30/19 18:57 05/30/19 16:00 99.2 F H 90 22 124/72 05/30/19 15:32 78 16 05/30/19 14:53 98.2 F 90 90 18 134/94 05/30/19 14:00 90 22 Pulse Ox 05/31/19 10:00 96 05/31/19 08:00 96 05/31/19 07:38 97 05/31/19 07:36 05/31/19 04:00 97 05/31/19 00:00 05/30/19 23:59 95 05/30/19 23:30 97 05/30/19 21:44 96 05/30/19 20:24 96 05/30/19 19:42 95 05/30/19 19:05 05/30/19 18:57 93 05/30/19 16:00 91 05/30/19 15:32 05/30/19 14:53 93 05/30/19 14:00 91 Intake and Output 05/30/19 05/31/19 05/31/19 21:59 05:59 13:59 Intake Total 300 400 420 Output Total 081 441 0807 Balance -272 -962 -368 Intake: IV 300 300 Zithromax 250 mg In Dextrose 5% 250 250 in Water 250 ml @ 250 mls/hr IV Q24H [facility] Rx#:[id number] Rocephin 2 gm In Dextrose 5% in 50 50 Water 50 ml @ 100 mls/hr IV Q24H [facility] Rx#:[id number] Oral 400 120 Output: Void Amount 664 372 7228 Other: Meal Breakfast Percent of Meal Consumed 100% Feeding Ability Independent Urine Appearance Clear Urine Color Straw Urine Odor Normal # Voids 1 Weight 121.971 kg Medical - DS: Data Labs on day of discharge: Labs from last 24 hours 05/31/19 05/31/19 05/31/19 04:40 04:40 04:40 WBC 15.4 H RBC 4.33 L Hgb 12.9 L Hct 39.4 L MCV 91.0 MCH 29.8 MCHC 32.7 RDW 13.1 Plt Count 243 MPV 10.6 H Gran % 78.6 H Lymph % (Auto) 14.1 L [place] % (Auto) 7.2 Eos % (Auto) 0 Baso % (Auto) 0.1 Gran # 12.05 H Lymph # (Auto) 2.17 [place] # (Auto) 1.11 H Eos # (Auto) 0 Baso # (Auto) 0.02 PT 13.7 INR 1.0 Sodium 138 Potassium 4.1 Chloride 101 Carbon Dioxide 25 Anion Gap 12.0 BUN 18 Creatinine 0.9 GFR Calculation 79 Glucose 119 H Uric Acid 5.8 Calcium 8.5 L Phosphorus 2.9 Magnesium 2.3 Total Bilirubin 0.3 Direct Bilirubin < 0.2 GGT 19 AST 22 ALT 11 Alkaline Phosphatase 97 Lactate Dehydrogenase 243 Total Protein 6.1 Albumin 3.4 Globulin 2.7 Albumin/Globulin Ratio 1.3 Triglycerides 128 TSH 1.95 Preliminary micro results at discharge 05/29/19 20:53 Blood Culture - Preliminary Blood 05/29/19 21:05 Blood Culture - Preliminary Blood Medical - DS: A/P - Patient/Caregiver Discharge Instructions Activity: increase activity as tolerated Diet: Cardiac Additional Instructions: Monitor blood pressure twice daily and bring log to PCP. Follow-up with PCP in 3 to 7 days Recommend follow-up CT chest in 6 months to evaluate an incidental 8mm nodule in the right upper lobe which was felt to be inflammatory but needs follow up to r/o malignancy Prescriptions: Losartan [Cozaar] 75 mg PO QDAY #30 tab Hydrochlorothiazide 12.5 mg PO DAILY #30 capsule Levofloxacin [Levaquin] 750 mg PO DAILY #3 tab amLODIPine [Norvasc] 7.5 mg PO DAILY #20 tablet predniSONE [Prednisone] 40 mg PO [facility] #1 tab - Follow up Plan Follow up with: Alexandria Oliver, SARAH, [employer] [Primary Care Provider] - 06/08/19 2:00 pm (Please arrive 15 minutes early) Disposition: Home, Self-Care Care Plan Goals: This discharge packet is provided to you to help keep you informed about your care. We want to ensure you get everything you need when you go home. You will also be receiving a call from us in a few days to follow up with you and see how you are doing since your discharge. This gives us a chance to listen to any concerns you maybe experiencing since you were discharged or any additional needs you may have, as well as providing us feedback on your care experience. We strive to always provide excellent care and thank you for your feedback and [facility] Prognosis: Fair Rehab Potential: Fair Overall status at discharge: patient is back to baseline Medical - DS: Qual - VTE Deep Vein Thrombosis/Pulmonary Embolism Present on Admission: No
[2019-05-31] MEDS ORDERED: ENALAPRILAT 1.25 MG/ML VIAL IV PRN (17:14)
[2019-05-31] MEDS ORDERED: LOSARTAN 25 MG TABLET PO ONE (17:15)
[2019-05-31] MEDS ORDERED: amLODIPine 5 MG TABLET PO ONE (17:15)
[2019-05-31] MEDS ORDERED: HYDROCHLOROTHIAZIDE 12.5 MG CAPSULE PO ONE (17:17)
[2019-05-31] MEDS: IPRATROPIUM/ALBUTEROL 3 ML AMPUL.NEB NEB PRN (19:25)
[2019-05-31] MEDS: hydrALAZINE 20 MG/ML VIAL IV PRN (19:30)
[2019-05-31] MEDS: amLODIPine 5 MG TABLET PO SCH (20:55)
[2019-06-01] MEDS: IPRATROPIUM/ALBUTEROL 3 ML AMPUL.NEB NEB PRN (01:11)
[2019-06-01] MEDS: hydrALAZINE 20 MG/ML VIAL IV PRN (01:29)
[2019-06-01] MEDS: 0.9 % SODIUM CHLORIDE 10 ML SYRINGE IV SCH (04:57)
[2019-06-01 05:38] LABS: Basophils # (Auto) 0.05 K/mcL (0.00-0.30); Basophils % (Auto) 0.2 % (0.0-2.0); Eosinophils # (Auto) 0.01 K/mcL (0.00-0.70); Eosinophils % (Auto) 0 % (0.0-7.0); Granulocytes % (Auto) 82.3 % (38.0-78.0); Hematocrit 43.7 % (40.1-51.0); Hemoglobin 14.4 g/dL (13.7-17.5); Lymphocytes # (Auto) 2.14 K/mcL (1.50-4.80); Lymphocytes % (Auto) 10.2 % (15.5-49.0); Mean Cell Volume 90.1 fL (80.0-100.0); Mean Platelet Volume 10.1 fL (7.4-10.4); Monocytes # (Auto) 1.53 K/mcL (0.10-0.90); Monocytes % (Auto) 7.3 % (1.0-12.0); Platelet Count 299 K/mcL (140-440); RBC 4.85 M/mcL (4.63-6.08); Red Cell Distribution Width 13.2 % (11.5-14.5); WBC 20.9 K/mcL (4.50-11.00)
[2019-06-01] MEDS: PANTOPRAZOLE 40 MG TABLET PO SCH (07:39)
[2019-06-01] MEDS ORDERED: FUROSEMIDE 40 MG TABLET PO ONE (07:49)
[2019-06-01] MEDS ORDERED: HYDROCHLOROTHIAZIDE 12.5 MG CAPSULE PO ONE (07:49)
--- NOTE | 2019-06-01 07:50 | Internal Med Progress Note ---
Medical - PN: Subj Patient information: Note initiated : 06/01/19 at 7:46 am Service Date, if different from initiated Date: [] Patient: Richi Aguila 83 y/o M admitted on 05/30/19 for shortness of breath. Chief Complaint: [] Interval history: Mr. Aguila is a 83 year old M with a history of COPD and a high blood pressure who was brought to the ER due to worsening shortness of breath for 2 days. As per patient and the family, she started to have trouble breathing associated with fever, chills and dry FEELS MUCH For 2 days. He was brought to the ER by EMS. On the way to the ER, he was put on CPAP. In the ER, he was put on BiPAP which helps him a lot. When I saw this patient in the ER, other than symptoms mentioned above, he denied headache, dizziness, chest pain, abdominal pain, nausea, vomiting, or dysuria. Denied recent travel or sick contact. 05/30 Patient with cough. States some shortness of breath better than yesterday. Other complaints. 05/31 With occasional cough. States that shortness of breath is essentially at his normal level. Patient is threatening to leave AMA. He is on room air at rest. We will walk him and see what his oxygen does. Leukocytosis I suspect is steroid related. He is afebrile and does not appear toxic. Patient ambulated on room air and lowest he got was low 90s. Review of Systems: denies headache/fever/chills/nausea/vomiting/chest or abdominal pain/diarrhea. Otherwise see above. - Constitutional Vitals: Vital Signs Temp Pulse Resp BP Pulse Ox 98.7 F 59 L 19 187/83 92 06/01/19 00:00 06/01/19 04:01 06/01/19 03:18 06/01/19 04:01 06/01/19 04:01 Period Temp Pulse Resp BP Sys/Metcalf Pulse Ox Last 24 Hr 98 F-99.1 F 59-113 15-24 144-187/67-91 91-97 Intake and Output 05/31/19 06/01/19 06/01/19 21:59 05:59 13:59 Intake Total 180 Output Total 825 525 130 Balance -645 -525 -130 Weight 122.334 kg Intake & Output: Intake & Output 03/11/20 03/12/20 03/12/20 21:59 05:59 13:59 Intake Total 180 Output Total 825 525 130 Balance -645 -525 -130 Weight 122.334 kg Intake: Oral 180 Output: Void Amount 825 525 130 Other: Meal Dinner Percent of Meal Consumed 100% Urine Appearance Clear Clear Urine Color Bright Yellow Bright Yellow Bright Yellow Urine Odor Normal Exam: General: Alert, Awake, No acute Distress Eyes/N/T: EOMI, Head/Neck: neck supple, CV: RRR, No murmurs, Pulm: mild wheeze b/l, no rales Abd: soft, nontender, +BS x4 Ext: no clubbing/cyanosis, 1+ b/l LE edema Neuro: Alert, no focal deficits, moves all extremities, Skin: warm/dry Medical - PN: Obj Da - Labs CBC & Chem 7: 06/01/19 05:00 05/31/19 04:40 Labs: Abnormal Lab Results 06/01/19 05/31/19 05/31/19 05:00 04:40 04:40 WBC 20.9 H 15.4 H RBC 4.33 L Hgb 12.9 L Hct 39.4 L MPV 10.6 H Gran % 82.3 H 78.6 H Lymph % (Auto) 10.2 L 14.1 L Gran # 17.21 H 12.05 H [place] # (Auto) 1.53 H 1.11 H Glucose 119 H POC Glucose Calcium 8.5 L POC WB Ioniz Calcium Alkaline Phosphatase NT-Pro-B Natriuret Pep 05/30/19 05/29/19 05/29/19 01:56 20:27 20:27 WBC RBC Hgb Hct MPV Gran % Lymph % (Auto) Gran # [place] # (Auto) Glucose 184 H 178 H POC Glucose 176 H Calcium POC WB Ioniz Calcium 1.07 L Alkaline Phosphatase 134 H 143 H NT-Pro-B Natriuret Pep 1561.0 H 05/29/19 20:27 WBC 16.1 H RBC Hgb Hct MPV 10.6 H Gran % Lymph % (Auto) Gran # 11.96 H [place] # (Auto) Glucose POC Glucose Calcium POC WB Ioniz Calcium Alkaline Phosphatase NT-Pro-B Natriuret Pep Meds: Medications Acetaminophen (Tylenol) 650 mg PO Q6HP PRN; Protocol PRN Reason: Per Pain Protocol/Fever > 101 Last Admin: 05/30/19 20:06 Dose: 650 mg Documented by: Albuterol/Ipratropium (Duoneb) 3 ml NEB Q4HP PRN PRN Reason: Shortness Of Breath Or Wheezing Last Admin: 06/01/19 01:11 Dose: 3 ml Documented by: Amlodipine Besylate (Norvasc) 5 mg PO HS [facility] Last Admin: 05/31/19 20:55 Dose: 5 mg Documented by: Artificial Tears (Refresh Celluvisc) 1 each OU TIDP PRN PRN Reason: DRY EYES Aspirin (Aspirin) 81 mg PO DAILY [facility] Last Admin: 05/31/19 10:00 Dose: 81 mg Documented by: Docusate Sodium (Colace) 100 mg PO BID [facility] Last Admin: 05/31/19 20:55 Dose: 100 mg Documented by: Enalaprilat (Vasotec) 0 mg IV Q2HP PRN PRN Reason: Hypertension Enoxaparin Sodium (Lovenox) 40 mg SQ DAILY [facility] Last Admin: 05/31/19 09:59 Dose: 40 mg Documented by: Hydralazine HCl (Apresoline) 0 mg IV Q2HP PRN PRN Reason: Hypertension Last Admin: 06/01/19 01:29 Dose: 10 mg Documented by: Azithromycin 250 mg/ Dextrose 250 mls @ 250 mls/hr IV Q24H [facility]; Protocol Stop: 06/01/19 15:59 Last Infusion: 05/31/19 11:59 Dose: Infused Documented by: Ceftriaxone Sodium 2 gm/ (Dextrose) 50 mls @ 100 mls/hr IV Q24H [facility] Last Infusion: 05/31/19 10:15 Dose: Infused Documented by: Losartan Potassium (Cozaar) 50 mg PO QDAY [facility] Last Admin: 05/31/19 10:00 Dose: 50 mg Documented by: Metoprolol Tartrate (Lopressor) 12.5 mg PO BID [facility] Last Admin: 05/31/19 20:54 Dose: 12.5 mg Documented by: Ondansetron HCl (Zofran) 4 mg IV Q4HP PRN; Protocol PRN Reason: Nausea And Vomiting Pantoprazole Sodium (Protonix) 40 mg PO QAMAC [facility] Last Admin: 06/01/19 07:39 Dose: 40 mg Documented by: Prednisone (Prednisone) 40 mg PO [facility] Sodium Chloride (Saline Flush) 10 ml IV Q8 [facility] Last Admin: 06/01/19 04:57 Dose: Not Given Documented by: Medical - PN: A/P - Time Spent With Patient Total time spent is greater than 50% in coordination of care (as documented) at patient's floor/unit and/or counseling patient: - Narrative A/P Narrative: Assessment: * Acute hypoxic respiratory failure -bipap initially, now on room air *AECOPD exacerbation *RLL PNA/(+)Human Metapneumovirus *Hypertensive urgency: improved *Leukocytosis: increased, suspect steroid effect, afebrile and not toxic appearing, BC neg Plan: -O2 prn -Prednisone (wean), IS/Acapella, Negs -Rocephin/Azithromycin -continue losartan 50 mg daily, added amlodipine 5 mg daily and low dose metoprolol 12.5 mg twice daily, prn Hydralazine - PT/ OT -f/u CT chest in 6 months evaluate incidental nodule RUL (felt to be i nflammatory but r/o CA) - DVT prophylaxis: Lovenox CODE STATUS: DNI Medical - PN: Qual - VTE Deep Vein Thrombosis/Pulmonary Embolism Present on Admission: No
[2019-06-01] MEDS ORDERED: predniSONE 10 MG TABLET PO SCH (08:00)
[2019-06-01] MEDS ORDERED: LOSARTAN 25 MG TABLET PO ONE (08:52)
[2019-06-01] MEDS ORDERED: amLODIPine 5 MG TABLET PO ONE (08:52)
[2019-06-01] MEDS: LOSARTAN 50 MG TABLET PO SCH (08:58)
[2019-06-01] MEDS: ASPIRIN 81 MG TAB.CHEW PO SCH (08:58)
[2019-06-01] MEDS: METOPROLOL TARTRATE 25 MG TABLET PO SCH (08:59)
[2019-06-01] MEDS: DOCUSATE SODIUM 100 MG CAPSULE PO SCH (09:01)
[2019-06-01] MEDS: ENOXAPARIN 40 MG/0.4 ML SYRINGE SQ SCH (09:02)
[2019-06-01] MEDS: cefTRIAXone 2 GM in DEXTROSE 5% IN WATER 50 ML IV SCH (09:54)
[2019-06-01] MEDS: AZITHROMYCIN 250 MG in DEXTROSE 5% IN WATER 250 ML IV SCH (09:55)
== END 2019-06-01 11:05 | disposition home or self-care (01) | DRG 189 ==
LOC: ED 20:04 → ICU 05-30 01:12
PROVIDERS: ADMIT Internal Medicine; ATTEND Internal Medicine